=== PATIENT | female | born 1950 | race Caucasian/White ===

== ENCOUNTER 2020-10-17 15:18 | Emergency (ER) | payer MEDICARE, SELFPAY ==
[2020-10-17] VITALS (10 sets, daily range): BP systolic 132–157; BP diastolic 76–89; PULSE 78–136; RESP 12–22; TEMP 36.6; O2SAT 95–100
--- NOTE | ~2020-10-17 | XR_ITS ---
EXAMINATION: XR chest 2V EXAM DATE: 10/17/2020 15:41 INDICATION: Shortness of breath. Chest pain, weakness. Hyperventilating. TECHNIQUE: Frontal and lateral projections of the chest obtained and reviewed. There is no prior keyla dy for comparison. FINDINGS: The lungs are clear. There are no pleural effusions. The cardiomediastinal silhouette is within normal limits. There is no pneumothorax suspected. The bones and soft tissues are unremarkab le. There are cholecystectomy clips. IMPRESSION: No acute cardiopulmonary findings. Reviewed, dictated and finalized at location B.
--- NOTE | 2020-10-17 15:23 | ECG_ITS ---
Measurements Intervals [place] Rate: 121 P: 34 [place]: 152 QRS: -25 QRSD: 80 T: -3 QT: 321 QTc: 457 Interpretive Statements SINUS TACHYCARDIA INCOMPLETE RIGHT BUNDLE BRANCH BLOCK LOW QRS VOLTAGE IN PRECORDIAL LEADS BORDERLINE ST-T WAVE ABNORMALITY- ANTEROLAT/INF LEADS BASELINE ARTIFACT- I, II, III, AVR, AVL, AVF, V3 ABNORMAL ECG Electronically Signed On 10-17-2020 16:30:54 CDT by Wm Kendrick D.O.
[2020-10-17 15:35] LABS: Basophils Percent Auto 0.4 % (0.2-1.2); Eosinophils Absolute Auto 0.1 K/mm3 (0-0.3); Eosinophils Percent Auto 0.7 % (0-4.4); Hematocrit 47.9 % (37.0-47.0); Immature Granulocyte Absolute 0.02 K/mm3 (0.00-0.031); Immature Granulocyte Percent A 0.3 % (0-0.5); Lymphocytes Absolute Auto 2.06 K/mm3 (0.9-3.2); Lymphocytes Percent Auto 28.9 % (18.3-44.2); Mean Corpuscular HGB Conc 33.4 g/dl (32-36); Mean Corpuscular Hemoglobin 32.1 pg (26-34); Mean Corpuscular Volume 96.2 fl (80-100); Mean Platelet Volume 9.6 fl (7.4-10.4); Monocytes Absolute Auto 0.6 K/mm3 (0.1-0.6); Monocytes Percent Auto 8.7 % (2.6-8.5); Neutrophils Absolute Auto 4.3 K/mm3 (1.3-6.7); Platelet Count Result 300 k/mm3 (150-375); Red Blood Count 4.98 M/mm3 (4.2-5.4); Red Cell Distribution Width 12.4 % (11.5-14.5); White Blood Count 7.1 K/mm3 (4.5-10.0)
[2020-10-17 15:46] LABS: Anion Gap 9 mmol/L (8-16); Blood Urea Nitrogen 10 mg/dL (7-17); Calcium 9.4 mg/dL (8.4-10.2); Carbon Dioxide 25 mmol/L (22-30); Chloride 105 mmol/L (98-107); Estimated CRCL calculation 45 ml/min; Estimated Glomerular Filt Rate 55; Glucose 123 mg/dL (65-105); Potassium 3.5 mmol/L (3.4-5.0); Sodium 139 mmol/L (137-145)
[2020-10-17 15:53] LABS: INR 0.8; Prothrombin Time 11.5 Seconds (11.1-14.7)
[2020-10-17 15:58] LABS: Troponin I < 0.012 ng/mL (0.000-0.034)
[2020-10-17] MEDS: LORazepam (*CRX) 0.5 MG TABLET 0.25 MG PO (18:42)
[2020-10-17 19:22] LABS: Troponin I < 0.012 ng/mL (0.000-0.034)
--- NOTE | 2020-10-17 19:29 | ED.CHESTPAIN ---
HPI - Chest Pain General Chief Complaint: Chest Pain Stated Complaint: sob/anxiety Time Seen by Provider: 10/17/20 17:06 Source: patient, family and RN notes reviewed Mode of arrival: ambulatory Limitations: no limitations History of Present Illness HPI narrative: Patient is a 69-year-old female who had an episodic period of chest discomfort and shortness of breath this morning lasted several hours notes that it started around 6 AM and persisted throughout the day resolved upon arrival to emergency department patient notes she has been under a lot of anxiety and stress. Patient notes she has been having intermittent episodes over the last several weeks especially after her doctor increased her trazodone Related Data Allergies Allergy/AdvReac Type Severity Reaction Status Date / Time No Known Allergies Allergy Unverified 08/19/18 14:46 Review of Systems Review of Systems: All systems reviewed & are unremarkable except as noted in HPI and below PMFSH Past Medical History Medical History (Updated 10/17/20 @ 19:36 by Hamilton Narayanan PA-C) Anxiety Social History Social History (Updated 10/17/20 @ 19:33 by Hamilton Narayanan PA-C) Smoking status: Never smoker Exam Narrative: Exam Narrative: GENERAL: Well-appearing, well-nourished, and in no acute distress. HEAD: Normocephalic, atraumatic. EYES: PERRLA and EOMI. ENT: Nares clear, no rhinorrhea or epistaxis. Mucous membranes moist. CHEST: Clear to auscultation. No respiratory distress. No wheezes rales or rhonchi HEART: Regular rate and rhythm. No murmur heard. Normal peripheral pulses. ABDOMEN: Soft, nontender, nondistended EXTREMITIES: Normal range of motion. No edema. SKIN: Warm, dry, no rash. NEURO: No focal deficits. Alert and oriented x3. Cranial nerves II through XII grossly intact PSYCH: Normal mood and affect. Course Course Emergency Course: Patient in the room no distress no high risk changes in the evaluation will be discharged home with outpatient follow-up felt that her symptoms are likely anxiety related Vital Signs Vital signs: Vital Signs Temperature 97.9 F 10/17/20 15:21 Pulse Rate 136 H 10/17/20 15:21 Respiratory Rate 20 10/17/20 15:21 Blood Pressure 157/78 H 10/17/20 15:21 Pulse Oximetry 97 06/03/21 15:21 Temperature 97.9 F 10/17/20 15:21 Pulse Rate 80 10/17/20 18:15 Respiratory Rate 18 10/17/20 18:15 Blood Pressure 142/78 H 10/17/20 18:00 Pulse Oximetry 99 10/17/20 18:15 MDM - Chest Pain MDM Narrative Medical decision making narrative: Patients EKGs and labs are without significant high risk changes. Cardiac risk factors were reviewed. Patient is felt likely to be low risk for ACS and reasonable for further risk stratification testing as an outpatient. Pain was not sudden or maximal in onset without tearing or ripping. quality. No other signs or symptoms to suggest aortic dissection. A low-risk Wells criteria is noted. PE is felt to be unlikely. No pneumonia or URI symptoms were seen on evaluation today. Patient is felt to be reasonable for continued evaluation as an outpatient. Lab Data Result diagrams: 10/17/20 15:26 10/17/20 15: Labs: Lab Results 10/17/20 10/17/20 10/17/20 Range/Units 15:26 15:26 15:26 WBC 7.1 (4.5-10.0) K/mm3 RBC 4.98 (4.2-5.4) M/mm3 Hgb 16.0 H (12.0-15.0) g/dL Hct 47.9 H (37.0-47.0) % MCV 96.2 (80-100) fl MCH 32.1 (26-34) pg MCHC 33.4 (32-36) g/dl RDW 12.4 (11.5-14.5) % Plt Count 300 (150-375) k/mm3 MPV 9.6 (7.4-10.4) fl Immature Gran % (Auto) 0.3 (0-0.5) % Neut % (Auto) 61.0 (45.5-73.1) % Lymph % (Auto) 28.9 (18.3-44.2) % [place] % (Auto) 8.7 H (2.6-8.5) % Eos % (Auto) 0.7 (0-4.4) % Baso % (Auto) 0.4 (0.2-1.2) % Lymph # (Auto) 2.06 (0.9-3.2) K/mm3 [place] # (Auto) 0.6 (0.1-0.6) K/mm3 Eos # (Auto) 0.1 (0-0.3) K/mm3 Baso # (Auto) 0.0 (0.0-0.1) K/
== END 2020-10-17 19:59 | disposition home or self-care (01) ==
PROVIDERS: Emergency Provider Emergency Medicine; PCP Nurse Practitioner Adult Health
DX: R07.89 Other chest pain (principal); F41.9 Anxiety disorder, unspecified; I45.10 Unspecified right bundle-branch block; R94.31 Abnormal electrocardiogram [ECG] [EKG]
CPT/HCPCS: 36415; 71046; 80048; 84484; 85025; 85610; 85730; 93005; 99284; A9270

== ENCOUNTER 2020-10-26 21:05 | Emergency (ER) | payer MEDICARE, SELFPAY ==
[2020-10-26 21:07] VITALS: BP 147/67; PULSE 128; RESP 24; TEMP 36.5; O2SAT 97
--- NOTE | 2020-10-26 21:22 | ECG_ITS ---
Measurements Intervals [place] Rate: 82 P: 63 CO: 155 QRS: -30 QRSD: 68 T: -9 QT: 309 QTc: 362 Interpretive Statements SINUS RHYTHM WITH SINUS ARRHYTHMIA INCOMPLETE RIGHT BUNDLE BRANCH BLOCK LOW QRS VOLTAGE IN PRECORDIAL LEADS VOLTAGE CRITERIA FOR LVH BORDERLINE R WAVE PROGRESSION, ANTERIOR LEADS BASELINE ARTIFACT- I, II, AVR, AVL, AVF, V3-V6 BORDERLINE ECG Electronically Signed On 10-27-2020 6:20:01 CDT by Wm Kendrick D.O.
[2020-10-26 22:19] VITALS: BP 138/102; PULSE 118; RESP 20; O2SAT 98
[2020-10-26 22:20] VITALS: PULSE 115
[2020-10-26 22:21] VITALS: PULSE 114
--- NOTE | 2020-10-26 22:22 | PC.NURSE ---
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 reports chest pain and assoc. shortness of breath today. went to urgent care and was told her heart rate was 137, but advised that urgent care could not do breathing treatments in office d/t covid. went home and 'tried to relax' and dyspnea spontaneously resolved. pt here tonight with family, c/o increased anxiety and starting 5mg prozac PO HS with PCP. attempting to find psychiatrist/counselor that will accept her insurance. pt c/o anxiety symptoms 'for a few months'. speech clear. a/o x 4. sitting on stretcher doing crossword puzzle. at bedside. will continue to monitor.
[2020-10-26 23:09] LABS: Basophils Percent Auto 0.2 % (0.2-1.2); Eosinophils Percent Auto 0.2 % (0-4.4); Hematocrit 46.3 % (37.0-47.0); Hemoglobin 15.3 g/dL (12.0-15.0); Immature Granulocyte Absolute 0.03 K/mm3 (0.00-0.031); Immature Granulocyte Percent A 0.3 % (0-0.5); Lymphocytes Percent Auto 16.9 % (18.3-44.2); Mean Corpuscular Volume 96.9 fl (80-100); Mean Platelet Volume 9.8 fl (7.4-10.4); Monocytes Absolute Auto 0.8 K/mm3 (0.1-0.6); Monocytes Percent Auto 7.9 % (2.6-8.5); Neutrophils Absolute Auto 7.1 K/mm3 (1.3-6.7); Neutrophils Percent Auto 74.5 % (45.5-73.1); Platelet Count Result 252 k/mm3 (150-375); Red Blood Count 4.78 M/mm3 (4.2-5.4); Red Cell Distribution Width 12.3 % (11.5-14.5); White Blood Count 9.5 K/mm3 (4.5-10.0)
[2020-10-26] MEDS: LORazepam (*CRX) 0.5 MG TABLET 0.25 MG PO (23:13)
[2020-10-26 23:20] LABS: Alanine Aminotransferase 36 U/L (4-35); Albumin Level 4.1 g/dL (3.5-5.1); Alkaline Phosphatase 53 U/L (38-126); Anion Gap 8 mmol/L (8-16); Aspartate Amino Transferase 38 U/L (14-36); Bilirubin,Total 0.3 mg/dL (0.2-1.3); Blood Urea Nitrogen 17 mg/dL (7-17); Calcium 9.7 mg/dL (8.4-10.2); Carbon Dioxide 26 mmol/L (22-30); Chloride 105 mmol/L (98-107); Estimated CRCL calculation 45 ml/min; Estimated Glomerular Filt Rate 55; Glucose 122 mg/dL (65-105); Magnesium 1.5 mg/dL (1.6-2.3); Potassium 3.5 mmol/L (3.4-5.0); Sodium 139 mmol/L (137-145)
[2020-10-26 23:31] LABS: Troponin I < 0.012 ng/mL (0.000-0.034)
--- NOTE | 2020-10-26 23:37 | ED.GENADULT ---
HPI - General Adult General Chief complaint: Chest Pain Stated complaint: weakness Time Seen by Provider: 10/26/20 22:29 History of Present Illness HPI narrative: Patient 69-year-old female presents the emergency department with chief complaint of anxiety. Patient reports she is recently been diagnosed with general anxiety disorder and has had problems with panic attacks her primary care physician started her on 25 mg of Xanax twice daily and also started her on a SSRI. The patient states that she has been feeling more more anxious lately and reports that she has been very tearful at times the patient states that it is improved with the Xanax but it tends to wear off fairly quick. Patient does report that she has a history of a seizure disorder which she has been chronically taking phenobarbital. Related Data Allergies Allergy/AdvReac Type Severity Reaction Status Date / Time No Known Allergies Allergy Verified 10/26/20 22:27 Review of Systems Review of Systems: Narrative: A 10 system review of systems was completed on the patient and is negative except for what is stated in the HPI. Nursing and ancillary documentation was reviewed. PMFSH Past Medical History Medical History Anxiety Social History Social History Smoking status: Never smoker Exam Narrative: Exam Narrative: GENERAL: Well-appearing, well-nourished, and in no acute distress. HEAD: Normocephalic, atraumatic. EYES: PERRLA and EOMI. ENT: Nares clear, no rhinorrhea or epistaxis. Mucous membranes moist. NECK: Supple. CHEST: Clear to auscultation. No respiratory distress. HEART: Regular rate and rhythm. No murmur heard. Normal peripheral pulses. ABDOMEN: Soft, nontender, nondistended, normal active bowel sounds. EXTREMITIES: Normal range of motion. No edema. SKIN: Warm, dry, no rash. NEURO: No focal deficits. Alert and oriented x3. PSYCH: Anxious mood, tearful affect, denies suicidal or homicidal ideation. Course Vital Signs Vital signs: Vital Signs Temperature 36.5 C 10/26/20 21:07 Pulse Rate 128 H 10/26/20 21:07 Respiratory Rate 24 H 10/26/20 21:07 Blood Pressure 147/67 H 10/26/20 21:07 Pulse Oximetry 97 10/26/20 21:07 Temperature 36.5 C 10/26/20 21:07 Pulse Rate 114 H 10/26/20 22:21 Respiratory Rate 20 10/26/20 22:19 Blood Pressure 138/102 H 10/26/20 22:19 Pulse Oximetry 98 10/26/20 22:19 Medical Decision Making Vital Signs Vital Signs: Vital Signs Temperature 36.5 C 10/26/20 21:07 Pulse Rate 128 H 10/26/20 21:07 Respiratory Rate 24 H 10/26/20 21:07 Blood Pressure 147/67 H 10/26/20 21:07 Pulse Oximetry 97 10/26/20 21:07 Temperature 36.5 C 10/26/20 21:07 Pulse Rate 114 H 10/26/20 22:21 Respiratory Rate 20 10/26/20 22:19 Blood Pressure 138/102 H 10/26/20 22:19 Pulse Oximetry 98 10/26/20 22:19 Lab Data Result diagrams: 10/26/20 22:55 10/26/20 22:55 Labs: Lab Results 10/26/20 10/26/20 Range/Units 22:55 22:55 WBC 9.5 (4.5-10.0) K/mm3 RBC 4.78 (4.2-5.4) M/mm3 Hgb 15.3 H (12.0-15.0) g/dL Hct 46.3 (37.0-47.0) % MCV 96.9 (80-100) fl MCH 32.0 (26-34) pg MCHC 33.0 (32-36) g/dl RDW 12.3 (11.5-14.5) % Plt Count 252 (150-375) k/mm3 MPV 9.8 (7.4-10.4) fl Immature Gran % (Auto) 0.3 (0-0.5) % Neut % (Auto) 74.5 H (45.5-73.1) % Lymph % (Auto) 16.9 L (18.3-44.2) % [place] % (Auto) 7.9 (2.6-8.5) % Eos % (Auto) 0.2 (0-4.4) % Baso % (Auto) 0.2 (0.2-1.2) % Lymph # (Auto) 1.60 (0.9-3.2) K/mm3 [place] # (Auto) 0.8 H (0.1-0.6) K/mm3 Eos # (Auto) 0.0 (0-0.3) K/mm3 Baso # (Auto) 0.0 (0.0-0.1) K/mm3 Abs Immat Gran (auto) 0.03 (0.00-0.031) K/mm3 Absolute Neuts (auto) 7.1 H (1.3-6.7) K/mm3 Absolute Nucleated RBC 0.0 (0.0-0.012) K/mm3 Nucleated R
[2020-10-27] MEDS: MAGNESIUM OXIDE 400 MG TABLET PO (00:15)
[2020-10-27 00:28] VITALS: BP 160/82; PULSE 89; RESP 20; TEMP 36.7; O2SAT 97
== END 2020-10-27 00:31 | disposition home or self-care (01) ==
PROVIDERS: Emergency Provider Emergency Medicine; PCP Nurse Practitioner Adult Health
DX: F41.1 Generalized anxiety disorder (principal); E83.42 Hypomagnesemia; R07.89 Other chest pain; I45.10 Unspecified right bundle-branch block; R94.31 Abnormal electrocardiogram [ECG] [EKG]
CPT/HCPCS: 36415; 80053; 83735; 84484; 85025; 93005; 99284; A9270

== ENCOUNTER 2023-12-26 20:12 | Emergency (ER) | payer OTHER, SELFPAY ==
--- NOTE | ~2023-12-26 | XR_ITS ---
EXAMINATION: XR chest 2V DATE: 12/26/2023 21:01 INDICATION: Chest pain. TECHNIQUE: Frontal and lateral views of the chest were obtained. COMPARISON: Chest 2 views 10/17/2020 FINDINGS: There is mild atelectasis in left lower lung zone. No pleural effusion or pneumothorax. The heart size is normal. Surgical clips in the right upper quadrant are likely from cholecystectomy. IMPRESSION: 1. Mild atelectasis in left lower lung zone. Reviewed, dictated and finalized at location E.
--- NOTE | 2023-12-26 20:14 | ECG_ITS ---
Test Date: 2023-12-26 20:21:54 Measurements Intervals [place] Rate: 74 P: 49 CO: 163 QRS: -25 QRSD: 90 T: 0 QT: 402 QTc: 446 Interpretive Statements SINUS RHYTHM BORDERLINE LEFT AXIS DEVIATION [QRS AXIS < -20] NONSPECIFIC T-WAVE ABNORMALITY ABNORMAL ECG No previous ECG available for comparison Electronically Signed On 12-27-2023 12:23:15 CDT by Jason Tavarez M.D.
[2023-12-26 20:42] VITALS: BP 122/84; PULSE 80; RESP 20; TEMP 35.9; O2SAT 96
[2023-12-26 20:46] LABS: Basophils Percent Auto 0.5 % (0.2-1.2); Eosinophils Percent Auto 0.4 % (0-4.4); Hematocrit 49.8 % (37.0-47.0); Hemoglobin 16.2 g/dL (12.0-15.0); Immature Granulocyte Absolute 0.02 K/mm3 (0.00-0.031); Immature Granulocyte Percent A 0.2 % (0-0.5); Lymphocytes Absolute Auto 1.24 K/mm3 (0.9-3.2); Lymphocytes Percent Auto 14.5 % (18.3-44.2); Mean Corpuscular HGB Conc 32.5 g/dl (32-36); Mean Corpuscular Hemoglobin 31.6 pg (26-34); Mean Corpuscular Volume 97.1 fl (80-100); Mean Platelet Volume 10.4 fl (7.4-10.4); Monocytes Absolute Auto 0.4 K/mm3 (0.1-0.6); Monocytes Percent Auto 4.8 % (2.6-8.5); Neutrophils Absolute Auto 6.8 K/mm3 (1.3-6.7); Neutrophils Percent Auto 79.6 % (45.5-73.1); Platelet Count Result 312 k/mm3 (150-375); Red Blood Count 5.13 M/mm3 (4.2-5.4); Red Cell Distribution Width 12.2 % (11.5-14.5); White Blood Count 8.5 K/mm3 (4.5-10.0)
[2023-12-26 20:57] LABS: Alanine Aminotransferase 19 U/L (6-35); Albumin Level 4.5 g/dL (3.5-5.1); Alkaline Phosphatase 53 U/L (38-126); Anion Gap 13 mmol/L (4-12); Aspartate Amino Transferase 27 U/L (14-36); Bilirubin,Total 0.7 mg/dL (0.2-1.3); Blood Urea Nitrogen 16 mg/dL (7-17); Calcium 9.5 mg/dL (8.4-10.2); Carbon Dioxide 26 mmol/L (22-30); Chloride 98 mmol/L (98-107); Estimated CRCL calculation 45 ml/min; Estimated Glomerular Filt Rate 54; Glucose 154 mg/dL (65-110); Lipase 37 U/L (23-300); Partial Thromboplastin Time 23.3 Seconds (22.3-36.8); Potassium 3.5 mmol/L (3.4-5.0); Sodium 137 mmol/L (137-145)
[2023-12-26 21:09] LABS: Troponin I < 0.012 ng/mL (0.000-0.034)
[2023-12-26 22:46] VITALS: BP 156/59; PULSE 59; RESP 15; O2SAT 99
--- NOTE | 2023-12-26 23:11 | ECG_ITS ---
Test Date: 2023-12-26 23:15:35 Measurements Intervals [place] Rate: 58 P: 37 ID: 162 QRS: -9 QRSD: 98 T: -11 QT: 447 QTc: 440 Interpretive Statements SINUS BRADYCARDIA INCOMPLETE RIGHT BUNDLE BRANCH BLOCK [90+ ms QRS DURATION, TERMINAL R IN V1/V2, 40+ ms S IN I/aVL/V4/V5/V6] MINIMAL VOLTAGE CRITERIA FOR LVH, CONSIDER NORMAL VARIANT [MEETS CRITERIA IN ONE OF: R(aVL), S(V1), R(V5), R(V5/V6)+S(V1)] NONSPECIFIC T-WAVE ABNORMALITY ABNORMAL ECG Compared to ECG 12/26/2023 20:21:54 AXIS IS NOT LEFTWARD, NO OTHER SIGNIFICANT CHANGE Electronically Signed On 12-27-2023 12:27:52 CDT by Jason Tavarez M.D.
[2023-12-27 00:02] LABS: Troponin I < 0.012 ng/mL (0.000-0.034)
[2023-12-27 00:47] VITALS: BP 132/68; PULSE 62; RESP 17; O2SAT 97
--- NOTE | 2023-12-27 02:48 | ED.CHESTPAIN ---
HPI - Chest Pain General Chief Complaint: Chest Pain Stated Complaint: chest pain Time Seen by Provider: 12/26/23 22:36 History of Present Illness HPI narrative: Patient presenting here with palpitations and some shortness of breath and nausea, feels like an anxiety attack, she has had these symptoms before; has seen cardiology 3yrs ago for this and had normal holter readings, was supposed to get echo but the tech was out. Related Data Allergies Allergy/AdvReac Type Severity Reaction Status Date / Time No Known Allergies Allergy Verified 12/26/23 20:47 Review of Systems Review of Systems: All systems reviewed & are unremarkable except as noted in HPI and below PMFSH Past Medical History Medical History Anxiety Social History Social History Smoking status: Never smoker Exam Narrative: EXAMINATION OF ORGAN SYSTEMS/BODY AREAS: Constitutional: Vital signs per nursing GENERAL:[No acute distress, non-toxic appearing.] HEAD: Normal with no signs of head trauma. EYES: EOMI, conjunctiva normal ENT: Hearing grossly intact LUNGS: Nonlabored breathing. HEART: [Regular rate and rhythm] ABD: [Soft], [nontender to palpation] EXT: Normal range of motion SKIN: [No rashes or lesions.] NEURO: [Alert and oriented x 3. No gross focal sensory or strength deficits.] PSYCH: Normal affect Course Vital Signs Vital signs: Vital Signs Temperature 96.7 F L 12/26/23 20:42 Pulse Rate 80 12/26/23 20:42 Respiratory Rate 20 12/26/23 20:42 Blood Pressure 122/84 12/26/23 20:42 Pulse Oximetry 96 12/26/23 20:42 Oxygen Delivery Room Air 12/26/23 20:42 Temperature 96.7 F L 12/26/23 20:42 Pulse Rate 62 12/27/23 00:47 Respiratory Rate 17 12/27/23 00:47 Blood Pressure 132/68 12/27/23 00:47 Pulse Oximetry 97 12/27/23 00:47 Oxygen Delivery Room Air 12/26/23 22:46 MDM - Chest Pain MDM Narrative Medical decision making narrative: Patient with history of anxiety/panic attacks presenting here with symptoms consistent with possible anxiety attack; patient since arrival here is feeling better and symptoms resolved. On exam patient is well appearing, comfortable, CTAB. Cardiac workup was obtained. Chest x-ray on my independent interpretation does not show any acute abnormality, no pneumothorax or consolidation. EKG - 12-Lead: Performed at 2315. Interpreted by me. [Sinus rhythm]. Rate 58. [Normal] axis. VA-interval 162. QRS duration 98. QTc 447. Some slight depressions in anterolateral leads however these are present on prior EKGs. Impression: No EKG evidence of acute ischemia or dysrhythmia. Two troponins are negative. On reevaluation patient is feeling better, resting comfortably, vital signs now stable. 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 Agreeable to outpatient management. Lab Data 12/26/23 20:29 12/26/23 20:29 Labs: Lab Results 12/26/23 12/26/23 Range/Units 20:29 23:21 WBC 8.5 (4.5-10.0) K/mm3 RBC 5.13 (4.2-5.4) M/mm3 Hgb 16.2 H (12.0-15.0) g/dL Hct 49.8 H (37.0-47.0) % MCV 97.1 (80-100) fl MCH 31.6 (26-34) pg MCHC 32.5 (32-36) g/dl RDW 12.2 (11.5-14.5) % Plt Count 312 (150-375) k/mm3 MPV 10.4 (7.4-10.4) fl Immature Gran % (Auto) 0.2 (0-0.5) % Neut % (Auto) 79.6 H (45.5-73.1) % Lymph % (Auto) 14.5 L (18.3-44.2) % [place] % (Auto) 4.8 (2.6-8.5) % Eos % (Auto) 0.4 (0-4.4) % Baso % (Auto) 0.5 (0.2-1.2) % Lymph # (Auto) 1.24 (0.9-3.2) K/mm3 [place] # (Auto) 0.4 (0.1-0.6) K/mm3 Eos # (Auto) 0.0 (0-0.3) K/mm3 Baso # (Auto) 0.0 (0.0-0.1) K/mm3 Abs Immat Gran (auto) 0.02 (0.00-0.031) K/mm3 Absolute Neuts (auto) 6.8 H (1.3-6.7) K/mm3 Absolute
== END 2023-12-27 00:49 | disposition home or self-care (01) ==
PROVIDERS: Emergency Provider Emergency Medicine; PCP Nurse Practitioner Adult Health
DX: R07.89 Other chest pain (principal); F41.9 Anxiety disorder, unspecified; Z79.899 Other long term (current) drug therapy; I45.10 Unspecified right bundle-branch block; R00.1 Bradycardia, unspecified
CPT/HCPCS: 36415; 71046; 80053; 83690; 84484; 85025; 85610; 85730; 93005; 99284

== ENCOUNTER 2024-01-02 21:00 | Emergency (ER) | payer OTHER, SELFPAY ==
[2024-01-02 21:02] VITALS: BP 120/96; PULSE 60; RESP 16; TEMP 36.1; O2SAT 97
--- NOTE | 2024-01-02 21:02 | ECG_ITS ---
Test Date: 2024-01-02 21:05:59 Measurements Intervals [place] Rate: 120 P: 55 [place]: 162 QRS: -34 QRSD: 88 T: 1 QT: 342 QTc: 483 Interpretive Statements SINUS TACHYCARDIA MARKED LEFT AXIS DEVIATION [QRS AXIS < -30] LOW QRS VOLTAGE IN PRECORDIAL LEADS [QRS DEFLECTION < 1.0 mV IN CHEST LEADS] POSSIBLE RIGHT VENTRICULAR CONDUCTION DELAY [RSR (QR) IN V1/V2] POSSIBLE ANTERIOR MYOCARDIAL INFARCTION , OF INDETERMINATE AGE [30 ms Q WAVE IN V3/V4, OR R < 0.2 mV IN V4] NONSPECIFIC T-WAVE ABNORMALITY ABNORMAL ECG Electronically Signed On 01-03-2024 10:57:51 CDT by Tomer Garcia M.D.
[2024-01-02 22:32] VITALS: BP 138/75; PULSE 84; RESP 18; O2SAT 97
--- NOTE | 2024-01-02 23:57 | ED.ANXIETY ---
HPI - Anxiety General Chief Complaint: Anxiety Stated Complaint: anxiety Time Seen by Provider: 01/02/24 22:57 Source: patient Mode of arrival: ambulatory Limitations: no limitations History of Present Illness HPI narrative: This is a 73 year old female that presents to the ER for anxiety. Reports she has episodes where she feels like her heart is fluttering/racing and panics. Reports this has been ongoing for quite some time. Has been evaluated in the ER for same several times. Reports she has worn a heart monitor in the past which did not show any arrhythmias. Does report a mild continued fluttering feeling and some anxiety. Denies fever, cough, shortness of breath, or lower extremity edema. Related Data Allergies Allergy/AdvReac Type Severity Reaction Status Date / Time No Known Allergies Allergy Verified 01/02/24 21:08 Review of Systems Review of Systems: CONSTITUTIONAL: Denies fever CARDIOVASCULAR: Reports palpitations. Denies edema. RESPIRATORY: Denies cough or dyspnea. All systems reviewed & are unremarkable except as noted in HPI and below PMFSH Past Medical History Medical History Anxiety Social History Social History Smoking status: Never smoker Substance use type: does not use Exam Narrative: GENERAL: Well-appearing, well-nourished, and in no acute distress. HEAD: Normocephalic, atraumatic. EYES: EOMI. NECK: Supple. No JVD CHEST: Clear to auscultation. No respiratory distress. No wheezes rales or rhonchi HEART: Regular rate and rhythm. No murmur heard. Normal peripheral pulses. EXTREMITIES: Normal range of motion. No edema. SKIN: Warm, dry, no rash. NEURO: No focal deficits. Alert and oriented x3. PSYCH: Normal mood and affect Course Course Emergency Course: patient updated on her workup and agrees with plan of care. resting comfortably Vital Signs Vital signs: Vital Signs Temperature 97 F L 01/02/24 21:02 Pulse Rate 60 01/02/24 21:02 Respiratory Rate 16 01/02/24 21:02 Blood Pressure 120/96 H 01/02/24 21:02 Pulse Oximetry 97 01/02/24 21:02 Oxygen Delivery Room Air 01/02/24 21:02 Temperature 97 F L 01/02/24 21:02 Pulse Rate 74 01/03/24 00:39 Respiratory Rate 15 01/03/24 00:39 Blood Pressure 148/76 H 01/03/24 00:39 Pulse Oximetry 100 01/03/24 00:39 Oxygen Delivery Room Air 01/02/24 21:02 MDM - Anxiety MDM Narrative Medical decision making narrative: Patient presents to the ER for palpitations and anxiety. Tachycardic upon arrival. EKG showing sinus tachycardia. Patient's heart rate normalized without intervention. Repeat EKG showing normal sinus rhythm with nonspecific ST changes, consistent with previous EKG. She does not endorse any chest pain or shortness of breath. Reports struggling with anxiety and having these episodes for quite some time. Reports she has been evaluated with a Holter monitor. CBC with mild leukocytosis. Patient is afebrile and does not have any localizing infectious symptoms. hemoglobin is stable. Metabolic panel without concerning findings. Baseline troponin is negative. TSH is normal. patient updated on her workup and agrees with plan of care. resting comfortably. She was instructed to have follow up with her PCP. She was given warnings to return to the ER Differential Diagnosis Differential diagnosis: Likely acute anxiety and other ( arrhythmia, sinus tachycardia) Lab Data Attestation: I reviewed the patient's lab results. 01/03/24 00:19 01/03/24 00:19 Labs: Lab Results 01/03/24 Range/Units 00:19 WBC 10.7 H (4.5-10.0) K/mm3 RBC 5.08 (4.2-5.4) M/mm3 Hgb 16.1 H (12.0-15.0) g/dL Hct 48.6 H (37.0-47.0) % MCV 95.7 (80-100) fl MCH 31.7 (26-34) pg MCHC 33.1 (32-36) g/dl RDW 12.2 (11.5-14.5) % Plt Count 255 (150-375) k/mm3 M
[2024-01-03] MEDS: diazePAM (*CRX) 2 MG TABLET PO (00:14)
[2024-01-03 00:24] LABS: Basophils Percent Auto 0.3 % (0.2-1.2); Eosinophils Percent Auto 0.1 % (0-4.4); Hematocrit 48.6 % (37.0-47.0); Hemoglobin 16.1 g/dL (12.0-15.0); Immature Granulocyte Absolute 0.04 K/mm3 (0.00-0.031); Immature Granulocyte Percent A 0.4 % (0-0.5); Lymphocytes Absolute Auto 1.37 K/mm3 (0.9-3.2); Lymphocytes Percent Auto 12.8 % (18.3-44.2); Mean Corpuscular HGB Conc 33.1 g/dl (32-36); Mean Corpuscular Hemoglobin 31.7 pg (26-34); Mean Corpuscular Volume 95.7 fl (80-100); Mean Platelet Volume 9.6 fl (7.4-10.4); Monocytes Absolute Auto 0.7 K/mm3 (0.1-0.6); Monocytes Percent Auto 6.6 % (2.6-8.5); Neutrophils Absolute Auto 8.5 K/mm3 (1.3-6.7); Neutrophils Percent Auto 79.8 % (45.5-73.1); Platelet Count Result 255 k/mm3 (150-375); Red Blood Count 5.08 M/mm3 (4.2-5.4); Red Cell Distribution Width 12.2 % (11.5-14.5); White Blood Count 10.7 K/mm3 (4.5-10.0)
--- NOTE | 2024-01-03 00:34 | ECG_ITS ---
Test Date: 2024-01-03 00:34:36 Measurements Intervals [place] Rate: 75 P: 42 [place]: 167 QRS: -19 QRSD: 96 T: -21 QT: 417 QTc: 468 Interpretive Statements SINUS RHYTHM INCOMPLETE RIGHT BUNDLE BRANCH BLOCK [90+ ms QRS DURATION, TERMINAL R IN V1/V2, 40+ ms S IN I/aVL/V4/V5/V6] MODERATE VOLTAGE CRITERIA FOR LVH, CONSIDER NORMAL VARIANT [MEETS CRITERIA IN ONE OF: R(aVL), S(V1), R(V5), R(V5/V6)+S(V1)] POSSIBLE ANTERIOR MYOCARDIAL INFARCTION , OF INDETERMINATE AGE [30 ms Q WAVE IN V3/V4, OR R < 0.2 mV IN V4] MODERATE T-WAVE ABNORMALITY, CONSIDER INFERIOR AND LATERAL ISCHEMIA [-0.1+ mV T WAVE IN I/aVL/V5/V6] ABNORMAL ECG Electronically Signed On 01-03-2024 10:58:49 CDT by Tomer Garcia M.D.
[2024-01-03 00:35] LABS: Alanine Aminotransferase 17 U/L (6-35); Albumin Level 4.1 g/dL (3.5-5.1); Alkaline Phosphatase 60 U/L (38-126); Anion Gap 8 mmol/L (4-12); Aspartate Amino Transferase 26 U/L (14-36); Bilirubin,Total 0.6 mg/dL (0.2-1.3); Blood Urea Nitrogen 14 mg/dL (7-17); Calcium 9.7 mg/dL (8.4-10.2); Carbon Dioxide 27 mmol/L (22-30); Chloride 102 mmol/L (98-107); Estimated CRCL calculation 44 ml/min; Estimated Glomerular Filt Rate 54; Glucose 105 mg/dL (65-110); Potassium 3.7 mmol/L (3.4-5.0); Sodium 137 mmol/L (137-145)
[2024-01-03 00:39] VITALS: BP 148/76; PULSE 74; RESP 15; O2SAT 100
[2024-01-03 00:46] LABS: Troponin I < 0.012 ng/mL (0.000-0.034)
== END 2024-01-03 01:21 | disposition home or self-care (01) ==
PROVIDERS: Emergency Provider Physician Assistant
DX: F41.9 Anxiety disorder, unspecified (principal); R00.2 Palpitations; R00.0 Tachycardia, unspecified; R94.31 Abnormal electrocardiogram [ECG] [EKG]
CPT/HCPCS: 36415; 80053; 84443; 84484; 85025; 93005; 99283; A9270

== ENCOUNTER 2024-03-13 11:06 | Outpatient (CLI) | payer OTHER, SELFPAY ==
--- NOTE | 2024-03-13 11:03 | ECHO_ITS ---
Patient Info Name: Gisella Chowdhury Age: 73 years : 1950 Gender: Female Ht: 62 in Wt: 175 lbs BSA: 1.90 m2 HR: 73 bpm BP: 119 / 88 mmHg Heart Rhythm: Sinus Rhythm Technical Quality: Good Exam Date: 03/13/2024 11:16 AM Exam Location: Echo Lab Patient Status: Outpatient Admit Date: 03/13/2024 Staff Ordering Physician: Apryl Valentino DO Email Marketer: Lupe Glover RDCS Attending Provider: Apryl Valentino DO Referring Physician: Chicho MURRAY; Exam Type: CA echo doppler color flow Study Info Indications - Heart disease R00.0 - Tachycardia, unspecified Complete two-dimensional, color flow and Doppler transthoracic echocardiogram is performed. Summary 1. Complete two-dimensional, color flow and Doppler transthoracic echocardiogram is performed. 2. Left ventricular chamber dimension is normal. 3. Left ventricular systolic function is normal, estimated at 60-65%. 4. The left ventricular diastolic function is grade I diastolic dysfunction. 5. E/e' 11 is mildly elevated. 6. Left atrial chamber dimension is mildly enlarged. 7. There is trace aortic valve regurgitation. 8. There is mild mitral valve regurgitation. 9. There is trace tricuspid valve regurgitation. 10. No pulmonary hypertension, estimated pulmonary arterial systolic pressure is 26 mmHg. Left Ventricle E/e' 11 is mildly elevated. Left ventricular chamber dimension is normal. Left ventricular systolic function is normal, estimated at 60-65%. The left ventricular diastolic function is grade I diastolic dysfunction. Right Ventricle Right ventricular systolic function is normal and with normal TAPSE 1.8 cm. Right ventricular chamber dimension is normal. Left Atria Left atrial chamber dimension is mildly enlarged. Right Atria Right atrial chamber dimension is normal. Aortic Valve The aortic valve is trileaflet. There is no aortic valve stenosis. There is trace aortic valve regurgitation. Pulmonic Valve There is no pulmonic regurgitation. Mitral Valve There is no mitral valve stenosis. There is mild mitral valve regurgitation. Tricuspid Valve There is trace tricuspid valve regurgitation. No pulmonary hypertension, estimated pulmonary arterial systolic pressure is 26 mmHg. Pericardium/Pleural There is no pericardial effusion. Inferior Vena Cava Normal inferior vena cava with >50% collapse upon inspiration consistent with normal right atrial pressure, 5 mmHg. Aorta The aortic root size at the sinus of Valsalva is normal. Left Ventricular Outflow Tract Name Value Normal LVOT 2D LVOT Diameter 2.0 cm LVOT Doppler LVOT Peak Gradient 3 mmHg LVOT Mean Gradient 1 mmHg LVOT VTI 18 cm LVOT VTI/AV VTI Ratio 0.8 LVOT Stroke Volume 56 ml LVOT CO 3.0 l/min LVOT CI 1.6 l/min/m2 Pulmonic Valve Name Value Normal RVOT Doppler RVOT Peak Gradient 2 mmHg PV Doppler PV Peak Gradient 4 mmHg Mitral Valve Name Value Normal MV Doppler MV Decel [place] 194 cm/s2 MV PHT 81 ms MV Area (PHT) 2.7 cm2 4.0-5.0 MV Diastolic Function MV E Peak Velocity 54 cm/s MV A Peak Velocity 86 cm/s MV E/A 0.6 MV Decel Time 278 ms MV Annular TDI MV E/e' (Septal) 12.9 <=8.0 MV E/e' (Lateral) 10.7 <=8.0 MV E/e' (Average) 11.8 Tricuspid Valve Name Value Normal TV Regurgitation Doppler TR Peak Velocity 230 cm/s TR Peak Gradient 21 mmHg Estimated PAP/RSVP RA Pressure 5 mmHg <=5 PA Systolic Pressure 26 mmHg <36 RV Systolic Pressure 26 mmHg <36 Aorta Name Value Normal Ascending Aorta Ao Root Diameter (MM) 2.6 cm Ao Root Diam Index (MM) 1.4 cm/m2 Aortic Valve Name Value Normal AV Doppler AV Peak Velocity 116 cm/s AV Peak Gradient 5 mmHg AV Mean Gradient 2 mmHg AV VTI 24 cm AV Area (Cont Eq VTI) 2.3 cm2 >=3.0 AV Area (Cont Eq Ketan) 2.1 cm2 AV Regurgitation 2D LVOT Area 3.0 cm2 Ventricles Name Value Normal LV Dimensions 2D/MM IVS Diastolic Thickness (2D) 0.9 cm 0.6-1.0 LVID Diastole (2D) 4.8 cm 3.8-5.2 LVIW Diastolic Thickness (2D) 0.9 cm 0.6-0.9 LVID Systole (2D) 2.6 cm 2.2-3.5 LVOT Diameter 2.0 cm LV Mass (2D Cubed) 139.70 g 67.00-162.00 LV Mass Index (2D Cubed) 74 g/m2 43-95 Relative Wall Thickness (2D) 0.35 LV Fractional Shortening/Ejection Fraction 2D/MM LV Fractional Shortening (2D) 46 % 27-45 LV EF (2D Teicholz) 77 % 54-74 LV Diastolic Volume (4C MOD) 49 ml LV EF (4C MOD) 66 % LV Diastolic Volume (2C MOD) 47 ml LV EF (2C MOD) 59 % LV Diastolic Volume (BP MOD) 49 ml 46-106 LV Diastolic Volume Index (BP MOD) 26 ml/m2 29-61 LV Systolic Volume (BP MOD) 19 ml 14-42 LV Systolic Volume Index (BP MOD) 10 ml/m2 8-24 LV EF (BP MOD) 62 % 54-74 LV Diastolic Length (4C) 6.7 cm LV Systolic Length (4C) 5.5 cm LV Stroke Volume (4C MOD) 33 ml Atria Name Value Normal LA Dimensions LA Dimension (MM) 5.0 cm 2.7-3.8 LA Volume (4C A-L) 47 ml LA Volume (BP A-L) 45 ml RA Dimensions RA Area (4C) 13.1 cm2 <=18.0 Report Signatures
== END 2024-03-13 11:07 | disposition home or self-care (01) ==
PROVIDERS: PCP Family Medicine; Visit Provider Family Medicine
DX: I51.9 Heart disease, unspecified (principal); R00.0 Tachycardia, unspecified; I34.0 Nonrheumatic mitral (valve) insufficiency
CPT/HCPCS: 93242; 93306